=== PATIENT | male | born 1995 | race Caucasian/White ===

== ENCOUNTER 2019-04-19 17:23 | Emergency (ER) | payer OTHER ==
[2019-04-19] MEDS ORDERED: IBUPROFEN 800 MG TABLET PO STA (18:09)
--- NOTE | 2019-04-19 18:09 | ED Physician Documentation ---
PD HPI LOWER EXT INJURY - Stated complaint Stated Complaint: RT ANKLE INJ - Chief complaint Chief Complaint: Trauma Ext - History obtained from History obtained from: Patient - History of Present Illness PD HPI LOW EXT INJURY LOCATION: Right, Ankle Type of injury: Twist Where injury occurred: Other (playing volleyball) Timing - duration: Hours (2) Timing - details: Abrupt onset Pain level max: 8 Pain level now: 8 Improved by: Rest, Ice, Immobilization Worsened by: Moving, Palpating Associated symptoms: Swelling. No: Weakness, Numbness, Tingling Contributing factors: No: Anticoagulated Recently seen: Not recently seen Review of Systems Constitutional: denies: Fever Musculoskeletal: denies: Neck pain, Back pain Neurologic: denies: Headache, Head injury PD PAST MEDICAL HISTORY - Past Medical History Past Medical History: No Cardiovascular: None Respiratory: None Neuro: None Endocrine/Autoimmune: None GI: None : None HEENT: None Psych: None Musculoskeletal: None Derm: None - Past Surgical History Past Surgical History: No - Present Medications Home Medications: Ambulatory Orders Medication Instructions Recorded Confirmed Ibuprofen [Motrin] 800 mg PO Q8H PRN #30 tablet 04/19/19 - Allergies Allergies/Adverse Reactions: Allergies Allergy/AdvReac Type Severity Reaction Status Date / Time No Known Drug Allergies Allergy Verified 04/19/19 17:38 - Social History Does the pt smoke?: Yes Smoking Status: Current every day smoker Does the pt drink ETOH?: Yes ETOH Use: Beer Does the pt have substance abuse?: No - Immunizations Immunizations are current?: No - POLST Patient has POLST: No PD ED PE NORMAL - Vitals Vital signs reviewed: Yes - General General: Alert and oriented X 3, No acute distress - HEENT HEENT: Moist mucous membranes - Neck Neck: Supple, no meningeal sign - Cardiac Cardiac: RRR - Respiratory Respiratory: No respiratory distress, Clear bilaterally - Derm Derm: Warm and dry - Extremities Extremities: Other (R ankle - TTP over the lateral malleolus. NVI. swelling present. o/w normal exam of the foot and ankle.) - Neuro Neuro: Alert and oriented X 3 Results - Vitals Vitals: Vital Signs - 24 hr 04/19/19 04/19/19 04/19/19 17:35 17:55 19:08 Temperature 36.8 C 36.8 C 36.8 C Heart Rate 79 76 71 Respiratory 16 16 18 Rate Blood Pressure 127/80 122/75 127/80 O2 Saturation 97 97 96 Oxygen O2 Source Room air - Rads (name of study) Right ankle x-ray Radiology: Prelim report reviewed, EMP read contemporaneously, See rad report (Xray - IMPRESSION: Lateral soft tissue swelling. Possible small acute avulsion fracture) PD MEDICAL DECISION MAKING - ED course Complexity details: considered differential, d/w patient ED course: 24-year-old male with what appears to be a right ankle sprain, possible very small avulsion fracture. Will place in air splint and on crutches. We will follow-up with his doctor. Patient counseled regarding signs and symptoms for which I believe and urgent re-evaluation would be necessary. Patient with good understanding of and agreement to plan and is comfortable going home at this time This document was made in part using voice recognition software. While efforts are made to proofread this document, sound alike and grammatical errors may occur. Departure - Departure Disposition: 01 Home, Self Care Clinical Impression: Right ankle sprain Qualifiers: Encounter type: initial encounter Involved ligament of ankle: unspecified ligament Qualified Code(s): S93.401A - Sprain of unspecified ligament of right ankle, initial encounter Condition: Good Instructions: ED Sprain Ankle Follow-Up: your,doctor in 1 week [Other] Prescriptions: Ibuprofen [Motrin] 800 mg PO Q8H PRN #30 tablet PRN Reason: PAIN &/OR FEVER Comments: Keep weight off the ankle until seen by orthopedics. Return if you worsen. Follow-up with your doctor within 1 week. Xray - IMPRESSION: Lateral soft tissue swelling. Possible small acute avulsion fracture fragment at the distal tip of the lateral malleolus. Discharge Date/Time: 04/19/19 19:10
--- NOTE | 2019-04-19 18:32 | XRAY Report ---
Reason: R ankle pain s/p fall Procedure Date: 04/19/2019 Accession Number: [id number] / [id number] Procedure: XR - Ankle 3 View RT CPT Code: FULL RESULT: EXAM: RIGHT ANKLE RADIOGRAPHY EXAM DATE: 04/19/2019 06:06 PM. CLINICAL HISTORY: R ankle pain s/p fall. COMPARISON: None available. TECHNIQUE: 3 views. FINDINGS: Bones: There is a possible 4 mm avulsed bone fragment at the distal tip of the lateral malleolus. Otherwise no acute fracture or dislocation. Joints: The ankle mortise and talar dome are intact. No ankle joint effusion. Soft Tissues: Soft tissue swelling at the lateral malleolus. IMPRESSION: Lateral soft tissue swelling. Possible small acute avulsion fracture fragment at the distal tip of the lateral malleolus. [facility]
[2019-04-19 19:10] VITALS: BP 127/80
== END 2019-04-19 19:10 | disposition home or self-care (01) ==
LOC: ED 17:23
DX: S93.401A Sprain of unspecified ligament of right ankle, initial encounter (principal); X50.1XXA Overexertion from prolonged static or awkward postures, initial encounter; Y93.68 Activity, volleyball (beach) (court); F17.200 Nicotine dependence, unspecified, uncomplicated
CPT/HCPCS: 73610; 99283; 99284; A9270